=== PATIENT | female | born 1950 | race African-American/Black ===

== ENCOUNTER 2018-04-04 10:20 | Emergency (ER) | payer OTHER ==
[~2018-04-04] VITALS: Ht 157.5 cm; Wt 113.4 kg
[~2018-04-04 10:20] MED LIST: BRIM0.159; SIMV-8; VALS160T51
[2018-04-04 11:08] VITALS: BP 129/58
== END 2018-04-04 12:01 | disposition home or self-care (01) ==
LOC: ER 10:24
DX: I10 Essential (primary) hypertension (principal); Z79.899 Other long term (current) drug therapy; Z90.49 Acquired absence of other specified parts of digestive tract